=== PATIENT | male | born 1955 | race Caucasian/White ===

== ENCOUNTER 2018-09-13 21:24 | Inpatient (IN) | payer MEDICARE, MEDICAID ==
[2018-09-13 22:06] LABS: ADD MAN DIFF? NO
[2018-09-13 22:09] LABS: BASOPHILS % 0.6 % (0.0-2.0); EOSINOPHILS # 0.2 10^3/ul (0.0-0.5); EOSINOPHILS % 4.1 % (0.0-7.0); HEMATOCRIT 30.3 % (42.0-52.0); HEMOGLOBIN 10.1 g/dl (14.0-18.0); LYMPHOCYTES % 40.9 % (15.0-51.0); MEAN CORPUSCULAR HEMOGLOBIN 28.9 pg (29.0-33.0); MEAN CORPUSCULAR HGB CONC 33.3 g/dl (32.0-37.0); MEAN CORPUSCULAR VOLUME 86.6 fl (82.0-101.0); MONOCYTE # 0.5 10^3/ul (0.3-0.9); MONOCYTES % 9.9 % (0.0-11.0); NEUTROPHIL # 2.2 10^3/ul (1.6-7.5); NEUTROPHILS % 44.3 % (39.0-77.0); PLATELET COUNT 266 10^3/UL (140-415); RED CELL DISTRIBUTION WIDTH 12.3 % (11.5-14.5)
[2018-09-13 22:09] LABS: WHITE BLOOD COUNT 4.9 10^3/ul (4.8-10.8)
[2018-09-13] MEDS: ASPIRIN 81 MG TAB PO (22:11)
[2018-09-13 22:31] LABS: ANION GAP 10 (5-13); BLOOD UREA NITROGEN 19 mg/dl (7-20); CALCIUM 9.4 mg/dl (8.4-10.2); CARBON DIOXIDE 27 mmol/L (21-31); CHLORIDE 103 mmol/L (97-110); CREATININE 1.03 mg/dl (0.61-1.24); Estimated GFR > 60 mL/min (>60); GLUCOSE 168 mg/dl (70-220); POTASSIUM 4.8 mmol/L (3.5-5.1); SODIUM 140 mmol/L (135-144)
[2018-09-13] MEDS: ENOXAPARIN 80 MG/0.8 ML SYG SC (23:09)
[2018-09-14] MEDS ORDERED: ACETAMINOPHEN 325 MG TAB PO
[2018-09-14] MEDS: DILTIAZEM 25 MG INJ IV (01:07)
[2018-09-14 01:15] LABS: INR 1.17; PT RATIO 1.2
[2018-09-14] MEDS ORDERED: ONDANSETRON 4 MG INJ IV ×2 (03:30)
[2018-09-14] MEDS ORDERED: NITROGLYCERIN (SL) 0.4 MG TAB SL (03:30)
[2018-09-14] MEDS ORDERED: ALBUTEROL/IPRATROPIUM (NEB) 3 ML AMP HHN (03:30)
[2018-09-14] MEDS ORDERED: NACL 0.9% 3 ML SYG IV (03:30)
[2018-09-14] MEDS ORDERED: HYDROCODONE/APAP (5/325) TAB PO (03:30)
[2018-09-14] MEDS: ATORVASTATIN 80 MG TAB PO ×2 (04:00→20:36)
[2018-09-14] MEDS: ENOXAPARIN 80 MG/0.8 ML SYG SC (04:00)
[2018-09-14] MEDS: SOD CHLORIDE 0.9% 1,000 ML IV (04:00)
[2018-09-14 05:15] LABS: ADD MAN DIFF? NO
[2018-09-14 05:23] LABS: BASOPHILS % 0.6 % (0.0-2.0); EOSINOPHILS # 0.2 10^3/ul (0.0-0.5); EOSINOPHILS % 3.2 % (0.0-7.0); HEMATOCRIT 28.7 % (42.0-52.0); HEMOGLOBIN 9.6 g/dl (14.0-18.0); LYMPHOCYTES # 1.5 10^3/ul (0.8-2.9); LYMPHOCYTES % 29.8 % (15.0-51.0); MEAN CORPUSCULAR HEMOGLOBIN 28.8 pg (29.0-33.0); MEAN CORPUSCULAR HGB CONC 33.4 g/dl (32.0-37.0); MEAN CORPUSCULAR VOLUME 86.2 fl (82.0-101.0); MEAN PLATELET VOLUME 10.3 fl (7.4-10.4); MONOCYTE # 0.4 10^3/ul (0.3-0.9); MONOCYTES % 8.5 % (0.0-11.0); NEUTROPHIL # 2.9 10^3/ul (1.6-7.5); NEUTROPHILS % 57.7 % (39.0-77.0); PLATELET COUNT 262 10^3/UL (140-415); RED BLOOD COUNT 3.33 10^6/ul (4.70-6.10); RED CELL DISTRIBUTION WIDTH 12.3 % (11.5-14.5)
[2018-09-14 05:33] LABS: IRON 64 ug/dl (35-150)
[2018-09-14 05:42] LABS: CREATINE KINASE 150 IU/L (23-200)
[2018-09-14 05:43] LABS: % IRON SATURATION 21 % SAT (22-52); TOTAL IRON BINDING CAPACITY 310 ug/dl (241-421)
[2018-09-14 05:46] LABS: CK INDEX 3.4
[2018-09-14 05:49] LABS: ALANINE AMINOTRANSFERASE 37 IU/L (13-69); ALBUMIN 3.4 g/dl (3.3-4.9); ALBUMIN/GLOBULIN RATIO 1.13; ALKALINE PHOSPHATASE 70 IU/L (42-121); ANION GAP 7 (5-13); ASPARTATE AMINO TRANSFERASE 43 IU/L (15-46); BILIRUBIN,INDIRECT 0.2 mg/dl (0-1.1); BILIRUBIN,TOTAL 0.2 mg/dl (0.2-1.3); BLOOD UREA NITROGEN 18 mg/dl (7-20); CALCIUM 8.8 mg/dl (8.4-10.2); CARBON DIOXIDE 25 mmol/L (21-31); CHLORIDE 109 mmol/L (97-110); CHOL/HDL RATIO 4.6 RATIO; CHOLESTEROL 126 mg/dl (100-200); CREATININE 0.76 mg/dl (0.61-1.24); Estimated GFR > 60 mL/min (>60); GLUCOSE 161 mg/dl (70-220); HDL CHOLESTEROL 27 mg/dl (30-78); LDL CHOLESTEROL,CALCULATED 81 mg/dl; MAGNESIUM 1.6 mg/dl (1.7-2.5); POTASSIUM 4.3 mmol/L (3.5-5.1); SODIUM 141 mmol/L (135-144); TOTAL PROTEIN 6.4 g/dl (6.1-8.1); TRIGLYCERIDES 92 mg/dl (0-149)
[2018-09-14 05:51] LABS: CK-MB 5.07 ng/ml (0.0-2.4)
[2018-09-14 06:29] LABS: FERRITIN 30.6 ng/ml (11.1-264.0)
[2018-09-14] MEDS ORDERED: ENOXAPARIN 40 MG/0.4 ML SYG SC (09:00)
[2018-09-14] MEDS: ASPIRIN 81 MG TAB PO (09:48)
[2018-09-14] MEDS ORDERED: IODIXANOL LOCM 100 ML BTL (09:57)
[2018-09-14] MEDS ORDERED: VERAPAMIL 5 MG INJ (09:57)
[2018-09-14] MEDS ORDERED: HEPARIN 1000 UNITS/ML 10 ML INJ (09:57)
[2018-09-14] MEDS ORDERED: LIDOCAINE 1% (MDV) 20 ML INJ (09:57)
[2018-09-14] MEDS ORDERED: NITROGLYCERIN (IC) 100 MCG/ML INJ (09:58)
[2018-09-14] MEDS ORDERED: METOPROLOL 5 MG INJ (10:16)
[2018-09-14] MEDS ORDERED: FENTAnyl 50 MCG/ML VIAL (10:16)
[2018-09-14] MEDS ORDERED: MIDAZOLAM 1 MG/ML 2 ML INJ (10:16)
[2018-09-14] MEDS ORDERED: AMIODARONE 150 MG INJ (10:21)
[2018-09-14] MEDS ORDERED: NORepinephrine 4 MG INJ (10:32)
[2018-09-14] MEDS ORDERED: DEXTROSE 50% 50 ML SYRINGE IV ×2 (14:30)
[2018-09-14] MEDS ORDERED: GLUCOSE GEL 15 GRAM TUBE BUCCAL (14:30)
[2018-09-14] MEDS ORDERED: GLUCAGON 1 MG INJ IM (14:30)
[2018-09-14] MEDS ORDERED: GLUCOSE GEL 15 GRAM TUBE PO ×2 (14:30)
[2018-09-14] MEDS: METOPROLOL 50 MG TAB PO ×2 (17:40→20:36)
[2018-09-14] MEDS: INSULIN ASPART [NOVOLOG] 3 ML PEN SC ×2 (17:42→20:41)
[2018-09-14] MEDS: METOPROLOL 5 MG INJ IV (18:12)
[2018-09-14] MEDS: APIXABAN 5 MG TABLET PO (20:34)
[2018-09-14] MEDS: INSULIN GLARGINE [LANTus] (100 UNITS/ML) SYG SC (20:45)
[2018-09-14] MEDS ORDERED: ATORVASTATIN 40 MG TAB PO (21:00)
[2018-09-14] MEDS ORDERED: ATORVASTATIN 80 MG TAB PO (21:00)
[2018-09-14] MEDS ORDERED: METOPROLOL 50 MG TAB PO ×2 (21:00)
[2018-09-14] MEDS: IODIXANOL LOCM 100 ML BTL (22:16)
[2018-09-14] MEDS: SOD CHLORIDE 0.9% 100 ML (22:16)
[2018-09-15] MEDS: ACCU-CHEK XX (02:00)
[2018-09-15 07:01] LABS: ADD MAN DIFF? NO
[2018-09-15 07:03] LABS: BASOPHILS % 0.8 % (0.0-2.0); EOSINOPHILS # 0.2 10^3/ul (0.0-0.5); EOSINOPHILS % 3.3 % (0.0-7.0); HEMATOCRIT 27.7 % (42.0-52.0); HEMOGLOBIN 9.5 g/dl (14.0-18.0); LYMPHOCYTES # 1.6 10^3/ul (0.8-2.9); LYMPHOCYTES % 31.5 % (15.0-51.0); MEAN CORPUSCULAR HGB CONC 34.3 g/dl (32.0-37.0); MEAN CORPUSCULAR VOLUME 84.5 fl (82.0-101.0); MEAN PLATELET VOLUME 10.3 fl (7.4-10.4); MONOCYTE # 0.7 10^3/ul (0.3-0.9); MONOCYTES % 12.7 % (0.0-11.0); NEUTROPHIL # 2.7 10^3/ul (1.6-7.5); NEUTROPHILS % 51.5 % (39.0-77.0); PLATELET COUNT 254 10^3/UL (140-415); RED BLOOD COUNT 3.28 10^6/ul (4.70-6.10); RED CELL DISTRIBUTION WIDTH 12.5 % (11.5-14.5)
[2018-09-15 07:03] LABS: WHITE BLOOD COUNT 5.2 10^3/ul (4.8-10.8)
[2018-09-15 07:37] LABS: ANION GAP 6 (5-13); BLOOD UREA NITROGEN 17 mg/dl (7-20); CALCIUM 8.9 mg/dl (8.4-10.2); CARBON DIOXIDE 27 mmol/L (21-31); CHLORIDE 108 mmol/L (97-110); CREATININE 0.78 mg/dl (0.61-1.24); Estimated GFR > 60 mL/min (>60); GLUCOSE 105 mg/dl (70-220); MAGNESIUM 1.5 mg/dl (1.7-2.5); PHOSPHORUS 3.3 mg/dl (2.5-4.9); POTASSIUM 4.3 mmol/L (3.5-5.1); SODIUM 141 mmol/L (135-144)
[2018-09-15] MEDS: INSULIN ASPART [NOVOLOG] 3 ML PEN SC ×4 (07:55→20:33)
[2018-09-15] MEDS: APIXABAN 5 MG TABLET PO ×2 (08:15→20:33)
[2018-09-15] MEDS: METOPROLOL 50 MG TAB PO ×2 (08:21→20:32)
[2018-09-15 08:42] LABS: HEMOGLOBIN A1C 9.4 % (0-5.9)
[2018-09-15 14:43] LABS: CARCINOEMBRYONIC ANTIGEN 1.3 ng/ml (0.0-5.0)
[2018-09-15] MEDS: MAGNESIUM SULFATE 3 GM in DEXTROSE 5% 100 ML IVPB (14:53)
[2018-09-15] MEDS: ATORVASTATIN 80 MG TAB PO (20:32)
[2018-09-15] MEDS: INSULIN GLARGINE [LANTus] (100 UNITS/ML) SYG SC (20:33)
[2018-09-16] MEDS: ACCU-CHEK XX (01:27)
[2018-09-16 07:02] LABS: ADD MAN DIFF? NO
[2018-09-16 07:13] LABS: BASOPHILS % 0.6 % (0.0-2.0); EOSINOPHILS # 0.3 10^3/ul (0.0-0.5); EOSINOPHILS % 5.1 % (0.0-7.0); HEMATOCRIT 29.5 % (42.0-52.0); HEMOGLOBIN 9.9 g/dl (14.0-18.0); LYMPHOCYTES # 1.4 10^3/ul (0.8-2.9); LYMPHOCYTES % 29.2 % (15.0-51.0); MEAN CORPUSCULAR HEMOGLOBIN 28.9 pg (29.0-33.0); MEAN CORPUSCULAR HGB CONC 33.6 g/dl (32.0-37.0); MEAN PLATELET VOLUME 10.5 fl (7.4-10.4); MONOCYTE # 0.5 10^3/ul (0.3-0.9); MONOCYTES % 11.1 % (0.0-11.0); NEUTROPHIL # 2.6 10^3/ul (1.6-7.5); NEUTROPHILS % 53.8 % (39.0-77.0); PLATELET COUNT 271 10^3/UL (140-415); RED BLOOD COUNT 3.43 10^6/ul (4.70-6.10); RED CELL DISTRIBUTION WIDTH 12.3 % (11.5-14.5)
[2018-09-16 07:13] LABS: WHITE BLOOD COUNT 4.9 10^3/ul (4.8-10.8)
[2018-09-16] MEDS: ACETAMINOPHEN 325 MG TAB PO (07:26)
[2018-09-16 07:38] LABS: ANION GAP 6 (5-13); BLOOD UREA NITROGEN 15 mg/dl (7-20); CALCIUM 9.5 mg/dl (8.4-10.2); CARBON DIOXIDE 30 mmol/L (21-31); CHLORIDE 106 mmol/L (97-110); CREATININE 0.75 mg/dl (0.61-1.24); Estimated GFR > 60 mL/min (>60); GLUCOSE 122 mg/dl (70-220); POTASSIUM 4.1 mmol/L (3.5-5.1); SODIUM 142 mmol/L (135-144)
[2018-09-16] MEDS: INSULIN ASPART [NOVOLOG] 3 ML PEN SC ×4 (07:41→20:38)
[2018-09-16] MEDS: APIXABAN 5 MG TABLET PO ×2 (08:01→20:39)
[2018-09-16] MEDS: METOPROLOL 50 MG TAB PO ×2 (08:16→20:39)
[2018-09-16] MEDS: SOD CHLORIDE 0.9% 500 ML IV (08:35)
[2018-09-16] MEDS: AMIODARONE 900 MG in DEXTROSE 5% 482 ML IV (09:13)
[2018-09-16] MEDS: INSULIN GLARGINE [LANTus] (100 UNITS/ML) SYG SC (20:37)
[2018-09-16] MEDS: ATORVASTATIN 80 MG TAB PO (20:40)
[2018-09-17] MEDS: ACCU-CHEK XX (02:00)
[2018-09-17] MEDS: INSULIN ASPART [NOVOLOG] 3 ML PEN SC ×3 (07:55→17:46)
[2018-09-17] MEDS: METOPROLOL 50 MG TAB PO (08:42)
[2018-09-17] MEDS: APIXABAN 5 MG TABLET PO ×2 (08:42→19:55)
[2018-09-17] MEDS: AMIODARONE 200 MG TAB PO (11:21)
[2018-09-18 08:36] LABS: NIL 0.02 IU/mL; QUANTIFERON(R)-TB GOLD NEGATIVE (NEGATIVE); TB-NIL 0.16 IU/mL; TB2-NIL 0.15 IU/mL
== END 2018-09-17 20:14 | disposition home or self-care (01) | DRG 282 ==
LOC: E/R 21:24 → TEL 09-15 16:23
PROC: 4A023N7 Measurement of Cardiac Sampling and Pressure, Left Heart, Percutaneous Approach (ICD-10-PCS; principal; 2018-09-14 10:00)
PROC: B2161ZZ Fluoroscopy of Right and Left Heart using Low Osmolar Contrast (ICD-10-PCS; 2018-09-14 10:00)
DX: I21.A1 Myocardial infarction type 2 (principal); I48.0 Paroxysmal atrial fibrillation; E11.8 Type 2 diabetes mellitus with unspecified complications; I25.10 Atherosclerotic heart disease of native coronary artery without angina pectoris; Z79.4 Long term (current) use of insulin
CPT/HCPCS: 36415; 71045; 71275; 80048; 80053; 80061; 82378; 82550; 82553; 82728; 82962; 83036; 83540; 83735; 84100; 84443; 84484; 85025; 85610; 86480; 86635; 93005; 93306; 93458; 96372; 99291-25